=== PATIENT | female | born 1995 | race Caucasian/White ===

== ENCOUNTER 2018-01-04 19:48 | Emergency (ER) | payer OTHER ==
[2018-01-04 20:10] VITALS: PULSE 80; BMI 21.6
[2018-01-04] MEDS ORDERED: SODIUM CHLORIDE 1,000 ML IV STA (20:15)
--- NOTE | 2018-01-04 20:15 | PDOC ---
History of Present Illness - General Chief Complaint: Syncope/Near Syncope Stated Complaint: FAINTED Time Seen by Provider: 01/04/18 20:13 History Source: Patient Exam Limitations: No Limitations - History of Present Illness Initial Comments: 01/05/18 01:50 Best Contact:[phone] Pmhx:N/A Pshx:N/A Allergies:NKDA LMP:11/08/2017 22-year-old female marques presents to the emergency department with her boyfriend stating she did not get a chance to eat breakfast or lunch earlier today and felt hungry and dizzy. Patient states she did not syncopized. Patient denies headache, dizziness, lightheadedness, nausea/vomiting, fever/chills, neck pain/ stiffness, back pains, chest pain, shortness of breath, abdominal pains, flank pains, urinary symptoms, vaginal bleed. 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 Patient states she recently moved to a jail in [place]/2 weeks ago. Patient states she is taking vitamins over-the- counter daily. Past History - Past Medical History Allergies/Adverse Reactions: Allergies Allergy/AdvReac Type Severity Reaction Status Date / Time No Known Allergies Allergy Verified 01/04/18 20:37 Home Medications: Ambulatory Orders Nitrofurantoin Monohyd/M-Cryst [Macrobid -] 100 mg PO BID #14 capsule 01/05/18 - Suicide/Smoking/Psychosocial Hx Smoking History: Never smoked Hx Alcohol Use: No Drug/Substance Use Hx: No Review of Systems - Review of Systems Able to Perform ROS?: Yes Comments:: 01/05/18 01:53 CONSTITUTIONAL: Absent: fever, chills, diaphoresis, generalized weakness, malaise, loss of appetite HEENT: Absent: rhinorrhea, nasal congestion, throat pain, throat swelling, difficulty swallowing, mouth swelling, ear pain, eye pain, visual Changes CARDIOVASCULAR: Absent: chest pain, loss of consciousness, palpitations, irregular heart rate, peripheral edema RESPIRATORY: Absent: cough, shortness of breath, dyspnea with exertion, orthopnea, wheezing, stridor, hemoptysis GASTROINTESTINAL: Absent: abdominal pain, abdominal distension, nausea, vomiting, diarrhea, constipation, melena, hematochezia GENITOURINARY: Absent: dysuria, frequency, urgency, hesitancy, hematuria, flank pain, genital pain MUSCULOSKELETAL: Absent: myalgia, arthralgia, joint swelling SKIN: Absent: rash, itching, pallor HEMATOLOGIC/IMMUNOLOGIC: Absent: easy bleeding, easy bruising, lymphadenopathy, frequent infections ENDOCRINE: Absent: unexplained weight gain, unexplained weight loss, heat intolerance, cold intolerance NEUROLOGIC: Absent: headache, focal weakness or paresthesias, dizziness, unsteady gait, seizure, mental status changes, bladder or bowel incontinence PSYCHIATRIC: Absent: anxiety, depression, suicidal or homicidal ideation, hallucinations. Is the patient limited [place] proficient: No *Physical Exam - Vital Signs Last Vital Signs Temp Pulse Resp BP Pulse Ox 99.1 F 80 18 130/91 97 01/04/18 20:07 01/04/18 20:07 01/04/18 20:07 01/04/18 20:07 01/04/18 20:07 - Physical Exam Comments: 01/05/18 01:53 GENERAL: Well developed, well nourished. Awake and alert. No acute distress. HEENT: Normocephalic, atraumatic. PERRLA, EOMI. No conjunctival pallor. Sclera are non- icteric. Moist mucous membranes. Oropharynx is clear. NECK: Supple. Full ROM. No JVD. Carotid pulses 2+ and symmetric, without bruits. No thyromegaly. No lymphadenopathy. CARDIOVASCULAR: Regular rate and rhythm. No murmurs, rubs, or gallops. Distal pulses are 2+ and symmetric. PULMONARY: No evidence of respiratory distress. Lungs clear to auscultation bilaterally. No wheezing, rales or rhonchi. ABDOMINAL: Soft. Non-tender. Non-distended. No rebound or guarding. No organomegaly. Normoactive bowel sounds. MUSCULOSKELETAL Normal range of motion at all joints. No bony deformities or tenderness. No CVA tenderness. EXTREMITIES: No cyanosis. No clubbing. No edema. No calf tenderness. SKIN: Warm and dry. Normal capillary refill. No rashes. No jaundice. NEUROLOGICAL: Alert, awake, appropriate. Cranial nerves 2-12 intact. No deficits to light touch and temperature in face, upper extremities and lower extremities. No motor deficits in the in face, upper extremities and lower extremities. Normoreflexic in the upper and lower extremities. Normal speech. Toes are down- going bilaterally. Gait is normal without ataxia. PSYCHIATRIC: Cooperative. Good eye contact. Appropriate mood and affect. ED Treatment Course - LABORATORY CBC & Chemistry Diagram: 01/04/18 20:15 01/04/18 20:15 - RADIOLOGY Radiograph Interpretation: 01/05/18 01:53 US transvaginal: SIUP 146bpm 12 weeks 6 days *DC/Admit/Observation/Transfer Diagnosis at time of Disposition: Dizziness UTI (urinary tract infection) Qualifiers: Urinary tract infection type: acute cystitis Hematuria presence: without hematuria Qualified Code(s): N30.00 - Acute cystitis without hematuria - Discharge Dispostion Disposition: HOME Condition at time of disposition: Stable Admit: No - Prescriptions Prescriptions: Nitrofurantoin Monohyd/M-Cryst [Macrobid -] 100 mg PO BID #14 capsule - Referrals Referrals: Bri Dallas MD [Staff Physician] - - Patient Instructions Printed Discharge Instructions: DI for Urinary Tract Infection (UTI), DI for Dizziness-Nonvertigo Additional Instructions: Take vitamins as discussed Increase fluids Follow up with the [facility] within 48 hours Be sure to eat three times daily with snack in between your meals Return to the ER for any concerns - Post Discharge Activity
[2018-01-04 20:24] LABS: BASO % 0.4 % (0-2.0); EOS % 1.3 % (0-4.5); HEMATOCRIT 32.8 % (32.4-45.2); HEMOGLOBIN 11.2 GM/dL (10.7-15.3); LYMPH % 17.9 % (8-40); MCH 31.8 pg (25.7-33.7); MCHC 34.1 g/dl (32.0-36.0); MEAN CELL VOLUME 93.2 fl (80-96); MEAN PLT VOLUME 7.7 fl (7.5-11.1); MONO % 5.3 % (3.8-10.2); NEUT % 75.1 % (42.8-82.8); PLATELET COUNT 298 K/MM3 (134-434); RBC 3.52 M/mm3 (3.60-5.2); WHITE BLOOD COUNT 11.2 K/mm3 (4.0-10.0)
[2018-01-04 20:56] LABS: URINE APPEARANCE SLCLOUDY; URINE BILIRUBIN NEGATIVE (NEGATIVE); URINE BLOOD NEGATIVE (NEGATIVE); URINE COLOR YELLOW; URINE GLUCOSE (UA) NEGATIVE (NEGATIVE); URINE KETONE NEGATIVE (NEGATIVE); URINE NITRITE POSITIVE (NEGATIVE); URINE PROTEIN NEGATIVE (NEGATIVE); URINE UROBILINOGEN NEGATIVE mg/dL (0.2-1.0)
[2018-01-04 20:59] LABS: ALBUMIN 3.4 g/dl (3.4-5.0); ANION GAP 7 (8-16); BILIRUBIN,TOTAL 0.2 mg/dL (0.2-1.0); BLOOD UREA NITROGEN 7 mg/dL (7-18); CALCIUM 8.8 mg/dL (8.5-10.1); CHLORIDE 103 mmol/L (98-107); CO2 25 mmol/L (21-32); CREATININE 0.3 mg/dL (0.55-1.02); GLUCOSE,RANDOM 85 mg/dL (74-106); POTASSIUM 3.8 mmol/L (3.5-5.1); SGOT/AST 9 U/L (15-37); SGPT/ALT 11 U/L (12-78); SODIUM 135 mmol/L (136-145); TOT PROT 6.7 g/dl (6.4-8.2)
[2018-01-04 21:00] LABS: ALK PHOS 59 U/L (45-117)
[2018-01-04 21:08] LABS: URINE LEUK ESTERASE 1+ (NEGATIVE)
[2018-01-04 21:09] LABS: EPI CELLS RARE /HPF (FEW); URINE BACTERIA MODERATE /hpf (NONE SEEN); URINE HYALINE CAST 2 /lpf; URINE MUCUS FEW
--- NOTE | 2018-01-04 21:16 | PDOC ---
*Physical Exam - Vital Signs Last Vital Signs Temp Pulse Resp BP Pulse Ox 99.1 F 80 18 130/91 97 01/04/18 20:07 01/04/18 20:07 01/04/18 20:07 01/04/18 20:07 01/04/18 20:07 - Physical Exam Comments: 01/04/18 21:15 The patient was examined by [GABRIELLE Looney] under my direct supervision. I personally evaluated the patient. I concur with the above findings and the plan of care. ED Treatment Course - LABORATORY CBC & Chemistry Diagram: 01/04/18 20:15 01/04/18 20:15 - ADDITIONAL ORDERS Additional order review: Laboratory Results 01/04/18 01/04/18 20:30 20:15 Sodium 135 L Potassium 3.8 Chloride 103 Carbon Dioxide 25 Anion Gap 7 L BUN 7 Creatinine 0.3 L Creat Clearance w eGFR > 60 Random Glucose 85 Calcium 8.8 Total Bilirubin 0.2 AST 9 L ALT 11 L Alkaline Phosphatase 59 Total Protein 6.7 Albumin 3.4 Urine Color Yellow Urine Appearance Slcloudy Urine pH 6.0 Ur Specific [place] 1.016 Urine Protein Negative Urine Glucose (UA) Negative Urine Ketones Negative Urine Blood Negative Urine Nitrite Positive Urine Bilirubin Negative Urine Urobilinogen Negative Ur Leukocyte Esterase 1+ H Urine WBC (Auto) 31 Urine RBC (Auto) <1 Ur Epithelial Cells Rare Urine Bacteria Moderate Hyaline Casts 2 Urine Mucus Few 01/04/18 20:15 RBC 3.52 L MCV 93.2 MCHC 34.1 RDW 15.0 MPV 7.7 Neutrophils % 75.1 Lymphocytes % 17.9 Monocytes % 5.3 Eosinophils % 1.3 Basophils % 0.4 - Medications Given in the ED: ED Medications Discontinued Medications Generic Name Dose Route Start Last Admin Trade Name Freq PRN Reason Stop Dose Admin Sodium Chloride 1,000 mls @ 1,000 mls/hr 01/04/18 20:15 01/04/18 20:39 Normal Saline - IV 01/04/18 21:14 1,000 mls/hr ASDIR STA Administration
[2018-01-04] MEDS ORDERED: CEFTRIAXONE 1 GM in DEXTROSE 5%-WATER - 50 ML IVPB ONE (21:22)
[2018-01-04] MEDS ORDERED: CEFTRIAXONE 1 GM/50 ML BAG ONE (21:30)
[2018-01-04] MEDS ORDERED: ACETAMINOPHEN 325 MG TABLET (FP) PO ONE (23:41)
[2018-01-05 00:49] VITALS: BP 125/80; TEMP 98.7
--- NOTE | 2018-01-06 00:09 | EKG ---
Test Reason : Blood Pressure : / mmHG Vent. Rate : 086 BPM Atrial Rate : 086 BPM P-R Int : 124 ms QRS Dur : 068 ms QT Int : 380 ms P-R-T Axes : 030 072 043 degrees QTc Int : 454 ms NORMAL SINUS RHYTHM NORMAL ECG NO PREVIOUS ECGS AVAILABLE Confirmed by LUIZ WHITTEN MD ([id number]) on 01/06/2018 12:08:56 AM Referred By: Confirmed By:LUIZ WHITTEN MD
== END 2018-01-05 00:59 | disposition home or self-care (01) ==
LOC: JER 19:48
PROC: 3E0337Z Introduction of Electrolytic and Water Balance Substance into Peripheral Vein, Percutaneous Approach (ICD-10-PCS; principal; 2018-01-04)
PROC: 3E03329 Introduction of Other Anti-infective into Peripheral Vein, Percutaneous Approach (ICD-10-PCS; 2018-01-04)
DX: O26.891 Other specified pregnancy related conditions, first trimester (principal); O23.11 Infections of bladder in pregnancy, first trimester; R42 Dizziness and giddiness; Z3A.12 12 weeks gestation of pregnancy
CPT/HCPCS: 36415; 76817-TC; 80053; 81003; 81015; 85025; 86850; 86900; 86901; 93005; 93010; 96361; 96365; 99283-25; J7030

== ENCOUNTER 2018-03-25 18:00 | Emergency (ER) | payer OTHER ==
[2018-03-25 18:14] VITALS: BMI 22.6
--- NOTE | 2018-03-25 18:16 | PDOC ---
Rapid Medical Evaluation Chief Complaint: Nausea/Vomiting Time Seen by Provider: 03/25/18 18:10 Medical Evaluation: Allergies Allergy/AdvReac Type Severity Reaction Status Date / Time No Known Allergies Allergy Verified 03/25/18 18:10 03/25/18 18:12 I have performed a brief in-person evaluation of this patient. The patient presents with a chief complaint of: LMP Nov 10, Had emesis today with BRB more than a teaspoon. Pertinent physical exam findings:pale, but nontoxic appearing. I have ordered the following: Discussed with Edwardo Brito and will receive patient to OB for further eval. The patient will proceed to the ED for further evaluation.
[2018-03-25] MEDS ORDERED: SIMETHICONE 80 MG TAB.CHEW (FP) PO PRN (19:50)
[2018-03-25 20:36] VITALS: BP 102/61; PULSE 94; TEMP 98.4
== END 2018-03-25 20:10 | disposition home or self-care (01) ==
LOC: JER 18:00
DX: O26.892 Other specified pregnancy related conditions, second trimester (principal); K92.0 Hematemesis; Z3A.24 24 weeks gestation of pregnancy
CPT/HCPCS: 99281-25